=== PATIENT | female | born 1965 | race Two or more races ===

== ENCOUNTER 2017-09-15 16:21 | Outpatient (CLI) | payer OTHER ==
[~2017-09-15 16:21] MED LIST: ANTIVERT25 M1 PO
== END 2017-09-15 17:00 | disposition home or self-care (01) ==
LOC: NUCLEAR 16:21
DX: M81.0 Age-related osteoporosis without current pathological fracture (principal)

== ENCOUNTER 2017-11-20 08:25 | Emergency (ER) | payer OTHER ==
[~2017-11-20] VITALS: Ht 154.9 cm; Wt 53.5 kg
[2017-11-20] MEDS ORDERED: IBUPROFEN800 MG PO (09:29)
[2017-11-20] MEDS ORDERED: AMOX1TAB5 PO (09:29)
== END 2017-11-20 09:36 | disposition home or self-care (01) ==
LOC: ER 08:25
DX: J31.2 Chronic pharyngitis (principal); R07.0 Pain in throat

== ENCOUNTER 2019-08-21 17:17 | Emergency (ER) | payer OTHER ==
[~2019-08-21] VITALS: Ht 154.9 cm; Wt 53.5 kg
[~2019-08-21 17:17] MED LIST changes: +AMOX1TAB5 PO; +IBUPROFEN800 MG PO
[2019-08-21] MEDS ORDERED: CARDIZEM30 MG (17:27)
== END 2019-08-22 11:50 | disposition home or self-care (01) ==
LOC: ER 17:17 → CPU-OBS 17:20
DX: I48.91 Unspecified atrial fibrillation (principal)
CPT/HCPCS: G0378; G0379; 93005

== ENCOUNTER 2019-12-30 13:46 | Outpatient (CLI) | payer OTHER ==
[~2019-12-30] VITALS: Ht 154.9 cm; Wt 52.6 kg
[~2019-12-30 13:46] MED LIST changes: +CARDIZEM30 MG
== END 2019-12-30 16:33 | disposition home or self-care (01) ==
LOC: OFIC 805 13:46
PROVIDERS: ATTEND Otolaryngology
DX: R07.0 Pain in throat (principal); I48.91 Unspecified atrial fibrillation; J03.80 Acute tonsillitis due to other specified organisms